=== PATIENT | male | born 1970 | race Caucasian/White ===

== ENCOUNTER 2018-01-16 08:25 | Day surgery (SDC) | payer OTHER ==
[~2018-01-16 08:25] MED LIST: Acetaminophen/HYDROcodone 325-5 MG Tab PO PRN; Lactated Ringers 1,000 ML IV SCH; ceFAZolin 2 GM in Premix Bag 1 BAG IV SCH
[2018-01-16] MEDS ORDERED: Lidocaine 1% 20 ML MDV ONE (09:07)
--- NOTE | 2018-01-16 09:15 | PCM.PREANE ---
Preanesthetic Assessment - Anesthesia/Transfusion/Family Hx Anesthesia History: Prior Anesthesia Without Reaction Family History of Anesthesia Reaction: No Transfusion History: No Prior Transfusion(s) - Review of Systems General: No Symptoms Pulmonary: No Symptoms Cardiovascular: No Symptoms Gastrointestinal: No Symptoms Neurological: No Symptoms Other: Reports: None - Physical Assessment NPO Status Date: 01/15/18 NPO Status Time: 22:00 O2 Sat by Pulse Oximetry: 95 Respiratory Rate: 12 Vital Signs: Last Vital Signs Temp 36.2 C 01/16/18 08:50 Pulse 55 L 01/16/18 08:50 Resp 12 01/16/18 08:50 BP 127/69 01/16/18 08:50 Pulse Ox 95 01/16/18 08:50 Height: 1.93 m Weight: 127.006 kg ASA Class: 2 Mental Status: Alert & Oriented x3 Airway Class: Mallampati = 1 Dentition: Reports: Normal Dentition ROM/Head Extension: Full Lungs: Clear to Auscultation, Normal Respiratory Effort Cardiovascular: Regular Rate, Regular Rhythm - Allergies Allergies/Adverse Reactions: Allergies Allergy/AdvReac Type Severity Reaction Status Date / Time No Known Allergies Allergy Verified 01/11/18 12:07 - Acknowledgements Anesthesia Type Planned: General Anesthesia Pt an Appropriate Candidate for the Planned Anesthesia: Yes Alternatives and Risks of Anesthesia Discussed w Pt/Guardian: Yes Pt/Guardian Understands and Agrees with Anesthesia Plan: Yes Additional Comments: PMH: seasonal allergies, smokes cigars PLAN: GA-LMA PreAnesthesia Questionnaire HEENT History: Reports: Other (See Below) Other HEENT History: wears glasses Respiratory History: Reports: Sleep Apnea Other Respiratory History: uses CPAP Endocrine/Metabolic History: Reports: Obesity/BMI 30+ - Past Surgical History Head Surgeries/Procedures: Reports: None Musculoskeletal Surgical History: Reports: Other (See Below) Other Musculoskeletal Surgeries/Procedures:: surgery to left foot for crush injury - SUBSTANCE USE Smoking Status *Q: Light Tobacco Smoker Tobacco Use Within Last Twelve Months: Cigars, Snuff/Dip Recreational Drug Use History: No - HOME MEDS Home Medications: Home Meds Fluticasone Propionate [Flonase Allergy Relief] 1 spray NASBOTH ASDIRECTED 01/11 [History] - CURRENT (IN HOUSE) MEDS Current Meds: Current Medications Hydrocodone Bitart/Acetaminophen ([place] 325-5 Mg) 1 - 2 tab PO Q4H PRN PRN Reason: Pain Cefazolin Sodium/Dextrose 2 gm (/ Premix) 50 mls @ 100 mls/hr IV ONCALL SHADIA Lactated Ringer's (Ringers, Lactated) 1,000 mls @ 100 mls/hr IV ASDIRECTED SHADIA Discontinued Medications Lidocaine HCl (Xylocaine 1%) Confirm Administered Dose 20 ml .ROUTE .Seldom Seen [facility] Stop: 01/16/18 09:08
[2018-01-16] MEDS ORDERED: Propofol 200 MG/20 ML SDV ONE (09:31)
[2018-01-16] MEDS ORDERED: fentaNYL 100 MCG/2 ML SDV ONE (09:31)
[2018-01-16] MEDS ORDERED: Lidocaine 2% 5 ML SDV ONE (09:31)
[2018-01-16] MEDS ORDERED: Midazolam 1 MG/ML 2 ML SDV ONE (09:31)
[2018-01-16] MEDS ORDERED: Ketorolac 30 MG/ML SDV ONE (09:31)
[2018-01-16] MEDS ORDERED: Ondansetron 4 MG/2 ML SDV ONE (09:31)
[2018-01-16] MEDS ORDERED: Albuterol 6.7 GM Inhaler INH ONE (10:53)
--- NOTE | 2018-01-16 11:10 | PCM.OPNOTE ---
- General Post-Op/Procedure Note Date of Surgery/Procedure: 01/16/18 Operative Procedure(s): R knee scope with PMM Post-Op Diagnosis: R knee medial meniscus tear Anesthesia Technique: General LMA Primary Surgeon: Virginia Ivory Hot Blaster: Maulik Wadsworth in mLs: 5 Condition: Good Free Text/Narrative:: tt=22 min #[id number]
[2018-01-16] MEDS ORDERED: fentaNYL 100 MCG/2 ML SDV IVPUSH PRN (11:26)
--- NOTE | 2018-01-16 12:36 | OR ---
SURGEON: Virginia Ivory MD DATE OF PROCEDURE: 01/16/2018 PREOPERATIVE DIAGNOSIS: Right knee medial meniscus tear. POSTOPERATIVE DIAGNOSIS: Right knee medial meniscus tear. PROCEDURE: Right knee arthroscopy with partial medial meniscectomy. BANANA CARRIER: Maulik Bautista MD, PGY-2. ANESTHESIA: General. ESTIMATED BLOOD LOSS: 5 mL. TOURNIQUET TIME: 22 minutes. COMPLICATIONS: None. DVT PROPHYLAXIS: Not indicated. IMPLANTS USED: None. BRIEF HISTORY: Pedro is a 47-year-old male who has had complaint of progressive right knee pain. An MRI did show a tear of the medial meniscus. Due to his lack of response to conservative treatment, I did recommend surgical intervention. The risks and goals of procedure were discussed with the patient and were documented preoperatively. He agreed to proceed. DESCRIPTION OF THE PROCEDURE: The patient was properly identified and brought to the operating room. He was transferred from the OR cart and placed on the operating table in supine position. General anesthesia was administered. After adequate anesthesia was obtained, a well-padded tourniquet was applied to the right lower extremity. The right lower extremity was then prepped in standard fashion using ChloraPrep solution. It was then sterilely draped. A time-out was performed to ensure correct site and procedure. Preoperative antibiotics were given. The surgical site had been marked preoperatively. An Esmarch was used to exsanguinate the right lower extremity and the tourniquet was inflated to 250 mmHg. A lateral portal arthrotomy was established. Blunt trocar and cannula were introduced into the suprapatellar pouch. Camera, inflow, and outflow were assembled. No significant synovitis was noted. The patellofemoral joint was visualized. 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 The trochlea did not show any degenerative findings. The patella appeared to track centrally. I then extended down the lateral medial gutter. No loose bodies were identified. I then entered the medial compartment. A medial portal arthrotomy was established. A blunt probe was inserted. He had a complex degenerative tearing of the posterior horn of the medial meniscus. Using a combination of biters and shaver, this was resected back to a stable remnant. The meniscus was again probed and the remainder was found to be stable. The medial tibial plateau did show diffuse grade 2 chondromalacia. No significant degenerative findings were noted along the medial femoral condyle. I then entered the notch. Both the ACL and PCL were visualized and probed and found to be intact. I then entered the lateral compartment. The lateral meniscus was probed and found to be stable. He did have a small area along the anterior portion of the lateral tibial plateau that did show grade 2 to grade 3 chondromalacia. This measured approximately 5 mm x 5 mm. The remainder of the lateral compartment showed no significant degenerative findings. I then re-entered the patellofemoral joint. The undersurface of the patella was probed. A few areas of unstable cartilage were noted. A chondroplasty was performed. The cartilage was again probed and was found to be stable. The instruments were then removed from the knee. The portal sites were closed with 3-0 nylon. Lidocaine 1% was injected along the portal tracts. Xeroform gauze was placed over the wound and a bulky dressing was applied. The tourniquet was then deflated. He was awakened from his anesthetic and transferred back to the operating room cart. He was brought to recovery room in stable condition. All needle and sponge counts were correct. HARDY / MILES /[id number]
--- NOTE | 2018-01-16 13:29 | PCM48HPAN ---
Post Anesthesia Note - EVALUATION WITHIN 48HRS OF ANESTHETIC Vital Signs in Normal Range: Yes Patient Participated in Evaluation: Yes Respiratory Function Stable: Yes Airway Patent: Yes Cardiovascular Function Stable: Yes Hydration Status Stable: Yes Pain Control Satisfactory: Yes Nausea and Vomiting Control Satisfactory: Yes Mental Status Recovered: Yes Resp Rate: 10
--- NOTE | 2018-01-16 13:29 | PCM.POSTAN ---
POST ANESTHESIA ASSESSMENT - MENTAL STATUS Mental Status: Alert, Oriented, Somnolent - RESPIRATORY Respiratory Status: Respiratory Rate WNL, Airway Patent, O2 Saturation Stable - CARDIOVASCULAR CV Status: Pulse Rate WNL, Blood Pressure Stable - GASTROINTESTINAL GI Status: No Symptoms - POST OP HYDRATION Hydration Status: Adequate & Stable
== END 2018-01-16 13:30 | disposition home or self-care (01) ==
LOC: MW.SDS 08:25
PROVIDERS: ATTEND Orthopaedic Surgery
DX: M23.221 Derangement of posterior horn of medial meniscus due to old tear or injury, right knee (principal); M22.41 Chondromalacia patellae, right knee; F17.210 Nicotine dependence, cigarettes, uncomplicated
CPT/HCPCS: 29881; A9270; J1885; J2250; J2405; J3010; J7120; J2704